=== PATIENT | male | born 1975 | race Caucasian/White ===

== ENCOUNTER 2017-07-23 18:36 | Emergency (ER) | payer MEDICARE ==
[~2017-07-23] VITALS: Ht 162.6 cm; Wt 70.2 kg
[2017-07-23 18:38] VITALS: BP 143/95
== END 2017-07-23 19:11 | disposition home or self-care (01) ==
LOC: ED 19:05
DX: H66.91 Otitis media, unspecified, right ear (principal)
CPT/HCPCS: 99283

== ENCOUNTER 2017-11-22 16:30 | Emergency (ER) | payer BC, MEDICARE ==
[~2017-11-22] VITALS: Ht 162.6 cm; Wt 68.6 kg
[2017-11-22] MEDS ORDERED: METOCLOPRAMIDE 10MG TABLET PO ONE (17:00)
[2017-11-22] MEDS ORDERED: DIPHENHYDRAMINE 25 MG CAPSULE PO ONE (17:00)
[2017-11-22] MEDS ORDERED: METOCLOPRAMIDE 10MG TABLET PO PRN (17:00)
[2017-11-22] MEDS ORDERED: DIPHENHYDRAMINE 25 MG CAPSULE ONE (17:08)
[2017-11-22] MEDS ORDERED: METOCLOPRAMIDE 10MG TABLET ONE (17:08)
[2017-11-22] MEDS ORDERED: KETOROLAC 30 MG/1 ML IM ONE (18:00)
[2017-11-22] MEDS ORDERED: KETOROLAC 30 MG/1 ML ONE (18:49)
[2017-11-22 19:31] VITALS: BP 127/77
== END 2017-11-22 19:35 | disposition home or self-care (01) ==
LOC: ED 18:30
DX: R51 Headache (principal); J01.00 Acute maxillary sinusitis, unspecified
CPT/HCPCS: 70450; 96372; 99284; J1885; Q0163

== ENCOUNTER 2018-09-26 17:40 | Emergency (ER) | payer MEDICARE ==
[~2018-09-26] VITALS: Ht 162.6 cm; Wt 75.9 kg
--- NOTE | 2018-09-26 18:11 | NUR ---
PT STATED THAT HE BIT INTO A CANDY TWO DAYS AGO AND STARTED HAVING RIGHT SIDE TOOTH PAIN. STATED THAT HIS RIGHT LOWER JAW STARTED SWELLING LAST NIGHT. PT C/O TOOTH PAIN, JAW SWELLING, AND GRANT. PT IS ALERT, ORIENTED, WITH NAD. CALL LIGHT WITHIN REACH. AT BEDSIDE.
[2018-09-26] MEDS ORDERED: LIDOCAINE 1%, 10ML INFIL ONE (18:30)
[2018-09-26] MEDS ORDERED: LIDOCAINE-MPF 1%, 5ML ONE (18:34)
--- NOTE | 2018-09-26 18:50 | NUR ---
REPORT RECEIVED FROM [facility] [place]. ASSUMED CARE OF PT. PT RESTING ON GURNEY IN NAD. AWAITING I AND D AND THIS TIME. WILL CONTINUE TO MONITOR.
--- NOTE | 2018-09-26 18:50 | NUR ---
REPORT TO GENO ALDRIDGE.
[2018-09-26 19:53] VITALS: BP 132/81
--- NOTE | 2018-09-26 19:53 | NUR ---
Patient/Caregiver given discharge instructions and they have confirmed that they understand the instructions. Patient ambulatory with steady gait.
== END 2018-09-26 19:55 | disposition home or self-care (01) ==
LOC: ED 18:38
DX: K04.6 Periapical abscess with sinus (principal); K08.89 Other specified disorders of teeth and supporting structures; F17.200 Nicotine dependence, unspecified, uncomplicated
CPT/HCPCS: 41800; 99283